=== PATIENT | female | born 2000 | race Two or more races ===

== ENCOUNTER 2025-07-01 03:06 | Emergency (ER) | payer SELFPAY ==
[2025-07-01] VITALS (11 sets, daily range): BP systolic 95–138; BP diastolic 57–99; PULSE 72–102; RESP 15–18; TEMP 36.3–36.8; O2SAT 97–98; BMI 29.7
--- NOTE | 2025-07-01 03:08 | PD.EDOVER ---
ED Overdose RME/HPI General Chief Complaint: Overdose Stated Complaint: OD Time Seen by Provider: 07/01/25 03:10 Source: EMS Arrival date/time: 07/01/25 03:06 RME / HPI RME / HPI Narrative: See MDM for Dr. Cheung's HPI Documentation. Context: Intentional Overdose: relationship problems and drug/ETOH problems Related Data Allergies Allergy/AdvReac Type Severity Reaction Status Date / Time No Known Allergies Allergy Verified 07/01/25 03:15 Review of Systems Review of Systems Systems Reviewed: All systems reviewed, normal except as documented ED Exam Narrative Physical exam: See MDM for Dr. Cheung's Physical Exam Documentation. Course Quality Measures none Orders Category Date Time Status EKG (ED ONLY) *Do not use* NOW Care 07/01/25 03:12 Completed Saline [Insert IV] NOW Care 07/01/25 03:10 Active EKG (ED Only) Stat Exams 07/01/25 03:12 Draft Acetaminophen Stat Lab 07/01/25 03:30 Completed Alcohol, Blood Medical Stat Lab 07/01/25 03:30 Completed Bilirubin,Direct Stat Lab 07/01/25 03:30 Completed CBC Stat Lab 07/01/25 03:30 Completed CK [Creatine Kinase] Stat Lab 07/01/25 03:30 Completed CMP [Comprehensive Metabolic Panel] Stat Lab 07/01/25 03:30 Completed Drug Screen,Urine Stat Lab 07/01/25 03:27 Completed HCG Qualitative,Urine Stat Lab 07/01/25 03:27 Completed Lipase Stat Lab 07/01/25 03:30 Completed Magnesium Stat Lab 07/01/25 03:30 Completed PT [Prothrombin Time with INR] Stat Lab 07/01/25 03:30 Completed PTT [Partial Thromboplastin Time] Stat Lab 07/01/25 03:30 Completed Salicylate Stat Lab 07/01/25 03:30 Completed TSH [Thyroid Stimulating Hormone] Stat Lab 07/01/25 03:30 Completed Troponin I Stat Lab 07/01/25 03:30 Completed Type and Screen Stat Lab 07/01/25 03:30 Completed UA, C/S IF [Urinalysis, C/S if Indicated] Stat Lab 07/01/25 03:27 Completed LORazepam [Ativan Inj] Med 07/01/25 03:47 Discontinued 2 mg IVP X1 ONE Nicotine Patch [Nicoderm Patch] Med 07/01/25 03:38 Discontinued 21 mg TOP X1 ONE Ondansetron Inj [Zofran Inj] Med 07/01/25 03:11 Discontinued 4 mg IVP X1 ONE Sodium Chloride 0.9% 1000 ml [Ns] 1,000 ml Med 07/01/25 03:11 Discontinued IV 999 mls/hr activated charcoaL [Actidose-Aqua] Med 07/01/25 04:20 Discontinued 50 gm PO X1 ONE Referral Machinist General NOW 07/01/25 03:11 Active Vital Signs Vital signs: Vital Signs Temperature 97.4 F 07/01/25 04:07 Pulse Rate 95 07/01/25 04:07 Respiratory Rate 18 07/01/25 04:07 Blood Pressure 125/84 07/01/25 04:07 Pulse Oximetry (%) 97 07/01/25 04:07 Oxygen Delivery Method Room Air 07/01/25 04:07 Overdose MDM Narrative MDM Narrative:: This section includes all my notes and documentations, including HPI, PE, and ED course. Kory Cheung MD HPI: 24 y/o female BIBA with Tylenol overdose and alcohol intoxication. Girlfriend called 911. Patient was picked up outside. Patient reports thoughts of hurting herself. Took 15 Tylenol pills. No other ingestion. No thoughts of hurting other people. No hallucinations. No other complaints. ROS: All negative except as documented in HPI. Physical Exam: General: Alert and oriented. Appears intoxicated. Eyes: Conjunctivae and lids clear. EOMI. PERRL. ENT: No nasal congestion. Neck: Supple. Heart: RRR. Lungs: No respiratory distress. Good air movement. No rhonchi, wheezing, rales. Abdomen: Soft and nontender. Normal bowel sounds. No distension. No rebound or guarding. Back: No CVA tenderness. Legs: No clubbing, cyanosis, edema. Skin: Warm and dry. Neuro: Alert and oriented X 3. Cranial Nerves II-XII grossly intact. No peripheral motor deficits. Musculoskeletal: All major joints and bones are not tender with no limited ROM. I reviewed EMS notes. I reviewed all diagnostic test results: My interpretation of the EKG: NSR (91 bpm) with no ST-T changes. Blood tests and urine tests remarkable for Tylenol level 174.6 and serum alcohol 158.7. At this point, diagnoses include: Acetaminophen Overdose Alcohol intoxication Suicidal ideation I ordered IVF, Zofran 4 mg IV, activated charcoal 50 mg, NicoDerm patch (patient requested), and Ativan 2 mg IV (for severe agitation and aggression). At 6 AM on 07/01/2025, the care of the patient was transferred to Dr. CURRY. Kory Cheung MD Patient data External records reviewed:: [facility] [place] previous records (No prior ED records available for review) and EMS form Clinical information provided by:: patient Social determinants that could affect healthcare access:: alcohol use Patient has the following chronic illnesses:: None reported How is presenting disease/condition affected by chronic disease/condition?: no chronic disease Evaluation data The following diagnostics were reviewed and interpreted by me:: lab results and EKG tracing(s) (My interpretation of the EKG: NSR (91 bpm) with no ST-T changes. Kory Cheung MD) Lab and/or radiology exams considered but not ordered:: None Interpretation Summary: I reviewed all diagnostic test results: My interpretation of the EKG: NSR (91 bpm) with no ST-T changes. Blood tests and urine tests remarkable for Tylenol level 174.6 and serum alcohol 158.7. Medications / Prescriptions Medications or Prescriptions considered but not ordered:: None Medication administrations:: Medication Administration History Discontinued Medications Charcoal (Activated Charcoal 25 Gm/120 Ml Tube) 50 gm PO X1 ONE Stop: 07/01/25 04:21 Sodium Chloride (Ns) 1,000 mls @ 999 mls/hr IV .Q1H1M ONE Stop: 07/01/25 04:11 Last Infusion: 07/01/25 05:04 Dose: Infused Documented By: Admin: 07/01/25 03:58 Dose: 999 mls/hr Documented By: BALJINDER Lorazepam (Lorazepam 2 Mg/Ml Vial) 2 mg IVP X1 ONE Stop: 07/01/25 03:48 Last Admin: 07/01/25 03:57 Dose: 2 mg Documented By: BALJINDER Nicotine (Nicotine Patch 21 Mg/24 Hr Patch.Td24) 21 mg TOP X1 ONE Stop: 07/01/25 03:39 Last Admin: 07/01/25 03:57 Dose: 21 mg Documented By: BALJINDER Ondansetron HCl (Ondansetron Inj 2 Mg/Ml Inj 2 Ml) 4 mg IVP X1 ONE; Protocol Stop: 07/01/25 03:12 Last Admin: 07/01/25 03:57 Dose: 4 mg Documented By: BALJINDER I ordered IVF, Zofran 4 mg IV, activated charcoal 50 mg, NicoDerm patch (patient requested), and Ativan 2 mg IV (for severe agitation and aggression). Consultations Consultation(s) initiated? (list below): No Diagnosis Overdose Differential Diagnosis: cocaine intoxication, suicide attempt by multiple drug overdose, poisoning by opiate or related narcotic, drug overdose, acetaminophen overdose and accidental drug ingestion Most likely diagnosis given after review of the tests above:: Acetaminophen Overdose Alcohol intoxication Suicidal ideation Admission Indicated Admission indicated?: not indicated Explain why admission is indicated or not indicated:: No psychiatric service at this facility. Admission Request Was there a request for admission?: No Disposition Plan Disposition Plan: other (specify) (At 6 AM on 07/01/2025, the care of the patient was transferred to Dr. CURRY.) Discharge Plan Problem List Clinical Impression: Acetaminophen overdose, Alcohol intoxication, Suicidal ideation Patient/Caregiver Discharge Instructions Print Language: Serbian
--- NOTE | 2025-07-01 03:12 | EKG_ITS ---
[facility] Test Date: 2025-07-01 Pat Name: ALEXANDER PELAYO Department: Room: - Gender: Female Vocational Technical Education Director: : 2000 Requested By: Kory Seth Order Number: [id number] Reading MD: Kory Seth Measurements Intervals [place] Rate: 91 P: 34 [place]: 189 QRS: 31 QRSD: 92 T: 14 QT: 350 QTc: 432 Interpretive Statements SINUS RHYTHM No previous ECG available for comparison /store/S0/[id number]
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
[2025-07-01 03:44] LABS: Collection Type, Urine Clean Catch; Squamous Epithelial Cell,Urine 0 /hpf (0-5)
--- NOTE | 2025-07-01 03:44 | PC.NURSE ---
MARKETING AND DEVELOPMENT COORDINATOR STATES THAT WE HAVE TO WATCH PATIENT PER HOUSE SUP NO ONE TO ONE SITTER AT THE MOMENT
[2025-07-01 03:48] LABS: Basophils # (Auto) 0.1 Thou/mm3 (0.0-0.2); Basophils % (Auto) 1 % (0-2.5); Eosinophils # (Auto) 0.0 Thou/mm3 (0.0-0.5); Eosinophils % (Auto) 0 % (0-10); Hematocrit 39.5 % (36.0-46.0); Hemoglobin 13.6 g/dL (12.0-16.0); Immature Granulocytes Auto 0.03 Thou/mm3 (0.00-0.00); Lymphocytes # (Auto) 3.2 Thou/mm3 (1.0-4.8); Lymphocytes % (Auto) 32 % (10-50); Mean Corpuscular HGB Conc 34.4 g/dl (31.0-37.0); Mean Corpuscular Hemoglobin 27.7 pg (25.0-35.0); Mean Corpuscular Volume 80 fL (80-100); Monocytes # (Auto) 0.6 Thou/mm3 (0.0-0.8); Monocytes % (Auto) 6 % (0-12); Neutrophils # (Auto) 6.0 Thou/mm3 (1.8-7.7); Neutrophils % (Auto) 61 % (37-80); Nucleated Red Blood Cell # 0.00 Thou/mm3 (0.00-0.00); Nucleated Red Blood Cell % 0 /100 WBC (0); Platelet Count 351 Thou/mm3 (140-440); RDW Standard Deviation 36.2 fL (36.4-46.3); Red Blood Count 4.91 Miln/mm3 (4.00-5.20); White Blood Count 9.9 Thou/mm3 (3.6-11.0)
[2025-07-01 03:51] LABS: Bilirubin,Urine Negative (Negative); Blood,Urine Negative (Negative); Clarity,Urine Clear (Clear/Hazy); Color,Urine Colorless (Lt Yel-Yel); Culture Indicated,Urine Not Indicated; Glucose, Urine Negative (Negative); Ketones,Urine Negative (Negative); Leukocyte Esterase,Urine Negative (Negative); Nitrite,Urine Negative (Negative); PH,Urine 7.0 (5.0-7.0); Protein,Urine Negative (Neg - Trace); RBC,Urine 1 /hpf (0-3); Specific Gravity,Urine 1.003 (1.001-1.035); Urobilinogen,Urine Negative mg/dL (0.0-1.0); WBC,Urine 1 /hpf (0-5)
--- NOTE | 2025-07-01 03:54 | PC.NURSE ---
AT THE MOMENT THERE IS NO AVAILABLE ONE TO ONE SITTER FOR PT PER PROJECTION PRINTER SAL AND GUCCI MEJÍA
[2025-07-01 03:55] LABS: HCG Qualitative,Urine Negative
[2025-07-01] MEDS: NICOTINE PATCH 21 MG/24 HR PATCH.TD24 TOP (03:57)
[2025-07-01] MEDS: LORazepam 2 MG/ML VIAL IVP (03:57)
[2025-07-01] MEDS: ONDANSETRON INJ 2 MG/ML INJ 2 ML 4 MG IVP (03:57)
[2025-07-01 03:58] LABS: Amphetamine/Methamp Scrn,U Negative (Negative); Barbiturate Screen,Urine Negative (Negative); Benzodiazepines Screen,Urine Negative (Negative); Benzoylecgonine Screen, Ur Negative (Negative); Fentanyl Screen,Urine Negative (Negative); Opiate Screen,Urine Negative (Negative); THC Screen,Urine Negative (Negative)
[2025-07-01] MEDS: SODIUM CHLORIDE 0.9% 1000 ML 1,000 ML 999 ML IV ×2 (03:58→06:28)
--- NOTE | 2025-07-01 03:58 | PC.NURSE ---
0358, I put in a work order for engineering to take out the monitor for room 8, per pt nurse and charge nurse. I also called engineering extension 3 times and still no no response.
[2025-07-01 03:59] LABS: INR 1.0 (0.9-1.3); Partial Thromboplastin Time 27.5 Seconds (22.0-36.0); Prothrombin Time 10.4 Seconds (9.0-12.2)
[2025-07-01 04:09] LABS: Alanine Aminotransferase 18 U/L (10-49); Albumin, Serum 5.0 gm/dL (3.5-5.0); Albumin/Globulin Ratio 2.1 (1.2-2.2); Alcohol, Blood Medical 158.7 mg/dL (0-10.0); Alkaline Phosphatase 60 U/L (46-116); Anion Gap 13 (7-16); Aspartate Amino Transferase 23 U/L (0-34); BUN/Creatinine Ratio 8 Ratio (12-20); Bilirubin,Direct 0.1 mg/dL (0.0-0.3); Bilirubin,Total 0.3 mg/dL (0.3-1.2); Blood Urea Nitrogen < 5 mg/dL (9-23); Calcium 9.5 mg/dL (8.3-10.6); Calcium (Corrected) 9.5 mg/dL (8.5-10.1); Carbon Dioxide 22.4 mMol/L (20.0-31.0); Chloride 109 mMol/L (98-107); Creatine Kinase 84 U/L (34-171); Creatinine (Component) 0.6 mg/dL (0.6-1.3); Estimated Creatinine Clearance 165.9 mL/min (>60); Globulin 2.4 gm/dL (2.3-3.5); Glucose 105 mg/dL (74-106); Lipase 26 U/L (12-53); Magnesium 2.0 mg/dL (1.6-2.6); Osmolality,Calculated 284 (275-295); Potassium 3.9 mMol/L (3.4-5.1); Salicylate < 3.0 mg/dL; Sodium 144 mMol/L (136-145); Thyroid Stimulating Hormone 1.71 uIU/mL (0.55-4.78); Total Protein 7.4 gm/dL (5.7-8.2); eGFR > 60 See Note
--- NOTE | 2025-07-01 04:11 | PC.NURSE ---
PER HOUSE SUP NO AVAILABLE SITTER TO WATCH PT
[2025-07-01 04:20] LABS: Acetaminophen 174.6 mcg/mL (10.0-20.0)
--- NOTE | 2025-07-01 04:27 | PC.NURSE ---
APPROX AT 0346 A GENARO FRIED WAS CALLED. PT STARTED TO BECOME UNCOMPLAINT WITH TREATMENT. PT THREATEN TO REMOVE IV. THIS RN ATTEMPTED TO REDIRECT PT. PT WAS LESS AGITATED AND REMAINED CALM
[2025-07-01 04:52] LABS: Troponin I < 0.002 ng/mL (0.0-0.045)
--- NOTE | 2025-07-01 06:08 | PC.NURSE ---
THIS RN CALLED POISION CONTROL TO UPDATE ABOUT OD. SPOKE TO ADAN AND UPDATED HER ON TYLENOL BEING CRITICALLY HIGH. PER POISON CONTROL THAT WITHIN THE FIRST 4 HR OF INITAL INTAKE OF TYLENOL THAT THE DISPRUPTION LEVELS WOULD BE FALSEY HIGH. WOULD RECOMMEND TO WAIT TO TREAT AFTER THE 4HR TYLENOL DRAW. ADAN STATES TO LOOK AT AST/ALT FOR ABNORMALITIES. AST/ALT ARE WITHIN NORMAL RANGE. THIS INFORMATION WAS GIVEN TO DR. CURRY WHO STATES WE WILL STILL TREAT
--- NOTE | 2025-07-01 06:15 | PC.LAC ---
CALLED PHARMACY TO BRING acetylcysteine
--- NOTE | 2025-07-01 06:37 | PD.EDADDENDU ---
Emergency Room Addendum Addendum Narrative: 0600: Care assumed from Dr. Cheung, the previous shift emergency physician. Past medical, surgical, social and family history reviewed. Vitals and home medications reviewed. I will assume the care of the patient at this time. Please refer to the emergency department record for history and examination from initial visit.? Physical exam by me shows patient under no acute distress at this time. Patient placed on a 5150 hold pending placement. 1800: Patient was signed out to Dr. Cheung. Past medical, surgical, social and family history reviewed. Vitals and home medications reviewed. Results and treatment plan discussed. They will assume the care of the patient at this time and will follow the patient, pending psychiatric placement.
[2025-07-01 08:14] LABS: INR 1.6 (0.9-1.3); Partial Thromboplastin Time 46.3 Seconds (22.0-36.0); Prothrombin Time 16.8 Seconds (9.0-12.2)
[2025-07-01 08:35] LABS: Acetaminophen 38.1 mcg/mL (10.0-20.0); Alanine Aminotransferase < 7 U/L (10-49); Albumin, Serum 1.7 gm/dL (3.5-5.0); Albumin/Globulin Ratio 1.7 (1.2-2.2); Alkaline Phosphatase 22 U/L (46-116); Anion Gap 12 (7-16); Aspartate Amino Transferase < 8 U/L (0-34); BUN/Creatinine Ratio 25 Ratio (12-20); Bilirubin,Total < 0.2 mg/dL (0.3-1.2); Blood Urea Nitrogen < 5 mg/dL (9-23); Chloride 128 mMol/L (98-107); Creatinine (Component) < 0.2 mg/dL (0.6-1.3); Estimated Creatinine Clearance 497.6 mL/min (>60); Globulin 1.0 gm/dL (2.3-3.5); Glucose 81 mg/dL (74-106); Osmolality,Calculated 299 (275-295); Sodium 153 mMol/L (136-145); Total Protein 2.7 gm/dL (5.7-8.2); eGFR > 60 See Note
[2025-07-01 08:38] LABS: Calcium < 5.0 mg/dL (8.3-10.6); Carbon Dioxide 12.9 mMol/L (20.0-31.0); Potassium 2.1 mMol/L (3.4-5.1)
[2025-07-01 08:39] LABS: Calcium (Corrected) 6.8 mg/dL (8.5-10.1)
[2025-07-01 09:41] LABS: INR 1.1 (0.9-1.3); Partial Thromboplastin Time 27.3 Seconds (22.0-36.0); Prothrombin Time 11.7 Seconds (9.0-12.2)
[2025-07-01 09:56] LABS: Acetaminophen 38.0 mcg/mL (10.0-20.0); Alanine Aminotransferase 15 U/L (10-49); Albumin, Serum 4.2 gm/dL (3.5-5.0); Albumin/Globulin Ratio 1.9 (1.2-2.2); Alcohol, Blood Medical 55.3 mg/dL (0-10.0); Alkaline Phosphatase 47 U/L (46-116); Anion Gap 13 (7-16); Aspartate Amino Transferase 15 U/L (0-34); BUN/Creatinine Ratio 10 Ratio (12-20); Bilirubin,Total 0.3 mg/dL (0.3-1.2); Blood Urea Nitrogen < 5 mg/dL (9-23); Calcium 8.3 mg/dL (8.3-10.6); Calcium (Corrected) 8.3 mg/dL (8.5-10.1); Carbon Dioxide 20.6 mMol/L (20.0-31.0); Chloride 110 mMol/L (98-107); Creatinine (Component) 0.5 mg/dL (0.6-1.3); Estimated Creatinine Clearance 199.0 mL/min (>60); Globulin 2.2 gm/dL (2.3-3.5); Glucose 122 mg/dL (74-106); Osmolality,Calculated 285 (275-295); Potassium 3.6 mMol/L (3.4-5.1); Sodium 144 mMol/L (136-145); Total Protein 6.4 gm/dL (5.7-8.2); eGFR > 60 See Note
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
--- NOTE | 2025-07-01 15:22 | PC.SS ---
Chart accessed due to phone call received by pt s/o Luda Mckeon [phone], SS fielded call to Prudence SHARMA who has taken over for CONNER Garcia.
--- NOTE | 2025-07-01 15:26 | PC.SS ---
EDITH spoke to patients life partner Luda Mckeon [phone] who was inquiring if patient will be d/c today. SEISMIC INTERPRETER informed Luda that patient is medically clear but she is on a 5150-DTS hold and is pending LPS placement. Luda stated that patient was informed that she would be d/c home with safety plan, SEISMIC INTERPRETER informed Luda that due to the high tylenol levels patient is placed on a hold. Luda requested to speak to patients bedside nurse, EDITH transferred call.
--- NOTE | 2025-07-01 16:12 | PC.NURSE ---
spoke with Darcie from [facility], gave her status on patient for possible acceptance to their facilty, will call back if they accept.
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
--- NOTE | 2025-07-01 16:31 | PC.NURSE ---
Spoke with Thomas from Poison Control, informed her of the repeat acetaminophin draw, and they are going close the case on their end
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
--- NOTE | 2025-07-01 18:02 | PD.EDADDENDU ---
Emergency Room Addendum Addendum Narrative: I took over the care from Dr. Ty at 6 PM on 07/01/2025, see notes for complete H&P and ED course. Patient was accepted to [facility]. During my watch, the patient remained stable. Kory Cheung MD
--- NOTE | 2025-07-01 18:47 | PC.NURSE ---
Spoke with Daniel at [facility], she stated they will accept transfer of the pt. Accepting [facility], [address]. They would like us to arrange transport for 2099. Daniel stated no more report needed as I had given report to Darcie earlier, and Tameka Arciniega had spoken to someone prior to that
--- NOTE | 2025-07-01 20:40 | PC.NURSE ---
[facility] here to transport pt to [facility].
--- NOTE | 2025-07-14 15:08 | PC.SS ---
Chart accessed to verify patient d/c date for [facility].
== END 2025-07-01 20:40 ==
PROVIDERS: Emergency Medicine; Emergency Provider Emergency Medicine; PCP Family Medicine
DX: T39.1X2A Poisoning by 4-Aminophenol derivatives, intentional self-harm, initial encounter (principal)
CPT/HCPCS: 36415; 80053; 80307; 80320; 80329; 81001; 81025; 82248; 82550; 83690; 83735; 84443; 84484; 85025; 85610; 85730; 86850; 86900; 86901; 93005; 96127; 96361; 96365; 96366; 96375; 99284; J0132; J2060; J2405; J7030; J7060; A9270; G0480